=== PATIENT | female | born 1995 | race American Indian/Alaskan Native ===

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

== ENCOUNTER 2018-05-12 12:13 | Emergency (ER) | payer MEDICAID, OTHER ==
[2018-05-12 12:28] VITALS: BP 122/62
[2018-05-12] MEDS ORDERED: diphenhydrAMINE 50 MG Cap PO ONE (12:30)
--- NOTE | 2018-05-12 12:39 | EDM.PDOC ---
Scribed by Eliana Mendiola 05/12/18 1238 for Cesar Buck PA ED HPI GENERAL MEDICAL PROBLEM - General Chief Complaint: Skin Complaint Stated Complaint: HIVES Time Seen by Provider: 05/12/18 12:25 Source of Information: Reports: Patient, RN, RN Notes Reviewed History Limitations: Reports: No Limitations - History of Present Illness INITIAL COMMENTS - FREE TEXT/NARRATIVE: Patient is a 22-year-old female with diffuse rash with itching. This started today. She has had new laundry soap with scent. Onset: Today Duration: Getting Worse Location: Reports: Generalized Quality: Reports: Other (itching) Severity: Moderate Improves with: Reports: None Worsens with: Reports: None Associated Symptoms: Reports: No Other Symptoms - Related Data Allergies Allergy/AdvReac Type Severity Reaction Status Date / Time No Known Allergies Allergy Verified 05/12/18 12:24 Home Meds: Home Meds . 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: Musculoskeletal History: Reports: None Neurological History: Reports: None Psychiatric History: Reports: None Endocrine/Metabolic History: Reports: None Hematologic History: Reports: Anemia Immunologic History: Reports: None Oncologic (Cancer) History: Reports: None Dermatologic History: Reports: None - Infectious Disease History Infectious Disease History: Reports: None - Past Surgical History Head Surgeries/Procedures: Reports: None Musculoskeletal Surgical History: Reports: None Social & Family History - Family History Family Medical History: Noncontributory - Caffeine Use Caffeine Use: Reports: Coffee, Soda ED ROS GENERAL - Review of Systems Review Of Systems: ROS reveals no pertinent complaints other than HPI. ED EXAM, SKIN/RASH Exam: See Below Exam Limited By: No Limitations General Appearance: Alert, WD/WN, No Apparent Distress Eye Exam: Bilateral Eye: EOMI, Normal Inspection, PERRL Ears: Normal External Exam, Normal Canal, Hearing Grossly Normal, Normal TMs Nose: Normal Inspection, Normal Mucosa, No Blood Throat/Mouth: Normal Inspection, Normal Lips, Normal Teeth, Normal Gums, Normal Oropharynx, Normal Voice, No Airway Compromise Head: Atraumatic, Normocephalic Neck: Normal Inspection, Supple, Non-Tender, Full Range of Motion Respiratory/Chest: No Respiratory Distress, Lungs Clear, Normal Breath Sounds, No Accessory Muscle Use, Chest Non-Tender Cardiovascular: Normal Peripheral Pulses, Regular Rate, Rhythm, No Edema, No Gallop, No JVD, No Murmur, No Rub GI/Abdominal: Normal Bowel Sounds, Soft, Non-Tender, No Organomegaly, No Distention, No Abnormal Bruit, No Mass (Female) Exam: Deferred Rectal (Female) Exam: Deferred Back Exam: Normal Inspection Extremities: Normal Inspection, Normal Range of Motion, Non-Tender, No Pedal Edema, Normal Capillary Refill Neurological: Alert, Oriented, CN II-XII Intact, Normal Cognition, Normal Gait, Normal Reflexes, No Motor/Sensory Deficits Psychiatric: Normal Affect, Normal Mood Skin: Other (hives. Patient is itching) Lymphatic: No Adenopathy Course - Vital Signs Last Recorded V/S: Last Vital Signs Temp 36.7 C 05/12/18 12:16 Pulse 84 05/12/18 12:16 Resp 16 05/12/18 12:16 BP 122/62 05/12/18 12:16 Pulse Ox 100 05/12/18 12:16 - Orders/Labs/Meds Meds: Medications Discontinued Medications Generic Name Dose Route Start Last Admin Trade Name Daleq PRN Reason Stop Dose Admin Diphenhydramine HCl 50 mg 05/12/18 12:30 05/12/18 12:34 Benadryl PO 05/12/18 12:31 50 mg ONETIME ONE Administration Departure - Departure Time of Disposition: 13:35 Disposition: Home, Self-Care 01 Condition: Fair Clinical Impression: Hives - Discharge Information *PRESCRIPTION DRUG MONITORING PROGRAM REVIEWED*: Not Applicable *COPY OF PRESCRIPTION DRUG MONITORING REPORT IN PATIENT JANNA: Not Applicable Instructions: Hives Forms: ED Department Discharge Care Plan Goals: The patient was advised of the examination results during the visit. The patient was given an oral dose of Benadryl while in the ED. The patient was encouraged to continue to take Benadryl (25 mg) every 6 hours. If the patient has any additional symptoms or concerns, the patient should either visit her primary care facility or return to the emergency department. I have read and agree with the documentation that has been completed regarding this visit. By signing this record, I attest that the documentation was completed in my physical presence and is an accurate record of the encounter.
== END 2018-05-12 13:59 | disposition home or self-care (01) ==
LOC: DL.ED 12:13
DX: L50.9 Urticaria, unspecified (principal)
CPT/HCPCS: 99283; Q0163

== ENCOUNTER 2018-06-14 17:29 | Emergency (ER) | payer OTHER ==
[2018-06-14 17:50] VITALS: BP 123/68
[2018-06-14] MEDS ORDERED: Clindamycin HCl 150 MG Cap PO ONE (19:19)
[2018-06-14] MEDS ORDERED: Acetaminophen/HYDROcodone 325-10 MG Tab PO ONE (19:19)
--- NOTE | 2018-06-14 19:23 | EDM.PDOC ---
ED HPI GENERAL MEDICAL PROBLEM - General Chief Complaint: ENT Problem Stated Complaint: ? INFECTED TOOTH Time Seen by Provider: 06/14/18 19:20 Source of Information: Reports: Patient History Limitations: Reports: No Limitations - History of Present Illness INITIAL COMMENTS - FREE TEXT/NARRATIVE: c/o tooth flare up right face all swollen now. Treatments SLOT ATTENDANT: Reports: Other (see below) Other Treatments SLOT ATTENDANT: tylenol 650 mg this am - Related Data Allergies Allergy/AdvReac Type Severity Reaction Status Date / Time No Known Allergies Allergy Verified 05/12/18 12:24 Home Meds: Home Meds . 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: Musculoskeletal History: Reports: None Neurological History: Reports: None Psychiatric History: Reports: None Endocrine/Metabolic History: Reports: None Hematologic History: Reports: Anemia Immunologic History: Reports: None Oncologic (Cancer) History: Reports: None Dermatologic History: Reports: None - Infectious Disease History Infectious Disease History: Reports: None - Past Surgical History Head Surgeries/Procedures: Reports: None Musculoskeletal Surgical History: Reports: None Social & Family History - Family History Family Medical History: Noncontributory - Tobacco Use Smoking Status *Q: Unknown Ever Smoked - Caffeine Use Caffeine Use: Reports: Soda - Recreational Drug Use Recreational Drug Use: No ED ROS ENT - Review of Systems Review Of Systems: ROS reveals no pertinent complaints other than HPI. ED EXAM, ENT - Physical Exam Exam: See Below Exam Limited By: No Limitations General Appearance: Alert, WD/WN, Mild Distress, Moderate Distress, Other ( crying) Ears: Hearing Grossly Normal Mouth/Throat: Dental Abcess, Dental Pain, Dental Tenderness Head: Atraumatic, Other (right facila swelling, no s/s cellulitis) Neck: Non-Tender, Full Range of Motion Respiratory/Chest: No Respiratory Distress Cardiovascular: Regular Rate, Rhythm GI/Abdominal: Soft, Non-Tender Neurological: Alert, Oriented, Normal Cognition, Normal Gait, No Motor/Sensory Deficits Psychiatric: Tearful Skin: Warm, Dry, Normal Color Lymphatic: No Adenopathy Course - Vital Signs Last Recorded V/S: Last Vital Signs Temp 36.9 C 06/14/18 17:35 Pulse 71 06/14/18 17:35 Resp 16 06/14/18 17:35 BP 123/68 06/14/18 17:35 Pulse Ox 100 06/14/18 17:35 - Orders/Labs/Meds Meds: Medications Discontinued Medications Generic Name Dose Route Start Last Admin Trade Name Freq PRN Reason Stop Dose Admin Hydrocodone Bitart/Acetaminophen 1 tab 06/14/18 19:19 [place] 325-10 Mg PO 06/14/18 19:20 ONETIME ONE Clindamycin HCl 150 mg 06/14/18 19:19 Cleocin PO 06/14/18 19:20 ONETIME ONE Departure - Departure Time of Disposition: 19:22 Disposition: Home, Self-Care 01 Condition: Good Clinical Impression: Dental abscess, Dental caries - Discharge Information Instructions: Dental Abscess, [id number] Additional Instructions: 1) avoid solid foods 2) have liquids and soft foods 3) see DENTIST rx given; clindamycin 300mg qid x 40 vicodin 5/325mg tid prn x 12
== END 2018-06-14 19:30 | disposition home or self-care (01) ==
LOC: DL.ED 17:29
DX: K04.7 Periapical abscess without sinus (principal)
CPT/HCPCS: 99282

== ENCOUNTER 2019-06-22 20:41 | Emergency (ER) | payer MEDICAID ==
[2019-06-22 21:06] VITALS: BP 129/53; PULSE 73
[2019-06-22 21:48] LABS: ANION GAP 15.8 mEq/L (7-13); CHLORIDE,CL 102 mmol/L (98-107); SODIUM,NA 139 mmol/L (136-145)
--- NOTE | 2019-06-22 22:10 | EDM.PDOC ---
ED HPI GENERAL MEDICAL PROBLEM - General Chief Complaint: NETWORK TECHNICAL ANALYST Problem Stated Complaint: SPOTTING/11 WEEKS ALONG/HIGHRISK Time Seen by Provider: 06/22/19 22:05 Source of Information: Reports: Patient History Limitations: Reports: No Limitations - History of Present Illness INITIAL COMMENTS - FREE TEXT/NARRATIVE: states [id number], told has high risk preg. had intercourse this AM and later spotted x 1 and no further episode, was told to come in by PMD if has spotting. right now feels fine. Left Abdominal Pain Score (Numeric/FACES): 2 - Related Data Allergies Allergy/AdvReac Type Severity Reaction Status Date / Time No Known Allergies Allergy Verified 06/22/19 21:13 Home Meds: Home Meds Vit/FA/Fe Fumarate/Se [ MTR] 1 tab PO DAILY 06/22/19 [History] Past Medical History - Past Health History Medical/Surgical History: Denies Medical/Surgical History HEENT History: Reports: None Cardiovascular History: Reports: None Respiratory History: Reports: Asthma Gastrointestinal History: Reports: None Genitourinary History: Reports: None NETWORK TECHNICAL ANALYST History: Reports: , Spontaneous , Other (See Below) Other NETWORK TECHNICAL ANALYST History: Musculoskeletal History: Reports: None Neurological History: Reports: None Psychiatric History: Reports: None Endocrine/Metabolic History: Reports: None Hematologic History: Reports: Anemia Immunologic History: Reports: None Oncologic (Cancer) History: Reports: None Dermatologic History: Reports: None - Infectious Disease History Infectious Disease History: Reports: None - Past Surgical History Head Surgeries/Procedures: Reports: None Musculoskeletal Surgical History: Reports: None Social & Family History - Family History Family Medical History: Noncontributory - Tobacco Use Smoking Status *Q: Never Smoker Second Hand Smoke Exposure: No - Caffeine Use Caffeine Use: Reports: Coffee, Soda - Recreational Drug Use Recreational Drug Use: No ED ROS GENERAL - Review of Systems Review Of Systems: Comprehensive ROS is negative, except as noted in HPI. ED EXAM - Physical Exam Exam: See Below Exam Limited By: No Limitations General Appearance: Alert, WD/WN, No Apparent Distress. No: Active Emesis Ears: Hearing Grossly Normal Throat/Mouth: Normal Voice, No Airway Compromise Head: Atraumatic Neck: Non-Tender, Full Range of Motion Respiratory/Chest: No Respiratory Distress Cardiovascular: Regular Rate, Rhythm GI/Abdominal Exam: Soft, Other (minor suprapub discomfort) Neurological: Alert, Oriented, Normal Cognition, Normal Gait, No Motor/Sensory Deficits Psychiatric: Normal Affect, Normal Mood Skin Exam: Warm, Dry, Normal Color Lymphatic: No Adenopathy Course - Vital Signs Last Recorded V/S: Last Vital Signs Temp 36.8 C 06/22/19 21:05 Pulse 73 06/22/19 21:05 Resp 16 06/22/19 21:05 BP 129/53 L 06/22/19 21:05 Pulse Ox 94 L 06/22/19 21:05 - Orders/Labs/Meds Orders: Active Orders 24 hr Category Date Time Status OB Ltd 1 or More Fetus [US] Urgent Exams 06/22/19 22:30 Ordered Labs: Laboratory Tests 06/22/19 06/22/19 06/22/19 Range/Units 21:21 21:21 21:21 WBC 9.2 (5.0-10.0) 10^3/uL RBC 4.41 (4.2-5.4) 10^6/uL Hgb 12.9 D (12.0-16.0) g/dL Hct 37.7 (37.0-47.0) % MCV 85.5 D (80-100) fL MCH 29.3 (27.0-34.0) pg MCHC 34.2 (33.0-35.0) g/dL Plt Count 274 (150-450) 10^3/uL Sodium 139 (136-145) mmol/L Potassium 3.8 (3.5-5.1) mmol/L Chloride 102 (98-107) mmol/L Carbon Dioxide 25 (21-32) mmol/L Anion Gap 15.8 H (7-13) mEq/L BUN 10 (7-18) mg/dL Creatinine 0.53 L (0.55-1.02) mg/dL Est Cr Clr Drug Dosing 126.70 mL/min Estimated GFR (MDRD) > 60 BUN/Creatinine Ratio 18.9 (No establ ref range) Glucose 92 (74-99) mg/dL Calcium 8.8 (8.5-10.1) mg/dL Total Bilirubin 0.1 L (0.2-1.0) mg/dL AST 12 L (15-37) U/L ALT 26 (14-59) U/L Alkaline Phosphatase 85 (46-116) U/L Total Protein 7.5 (6.4-8.2) g/dL Albumin 4.0 (3.4-5.0) g/dL Globulin 3.5 Albumin/Globulin Ratio 1.1 HCG, Quant 4559 H (0-6) mIU/mL - Re-Assessments/Exams Free Text/Narrative Re-Assessment/Exam: 06/22/19 23:52 results discussed with pt & boyfriend. Departure - Departure Time of Disposition: 23:52 Disposition: Home, Self-Care 01 Condition: Good Clinical Impression: Spontaneous - Discharge Information Instructions: Coping With Loss Forms: ED Department Discharge Additional Instructions: 1) rest and avoid vigorous activity next 48 hours 2) follow up with Dr Wills 3) recheck if there is any change or concern 4) take tylenol for discomfort Sepsis Event Note - Evaluation Sepsis Screening Result: No Definite Risk - Focused Exam Vital Signs: Vital Signs Temp Pulse Resp BP Pulse Ox 06/22/19 21:05 36.8 C 73 16 129/53 L 94 L Date Exam was Performed: 06/22/19 Time Exam was Performed: 23:52 - My Orders Last 24 Hours: My Active Orders 06/22/19 22:30 OB Ltd 1 or More Fetus [US] Urgent - Assessment/Plan Last 24 Hours: My Active Orders 06/22/19 22:30 OB Ltd 1 or More Fetus [US] Urgent
[2019-06-22] MEDS ORDERED: Acetaminophen/HYDROcodone 325-10 MG Tab PO ONE (23:52)
== END 2019-06-23 | disposition home or self-care (01) ==
LOC: DL.ED 20:41
DX: O03.9 Complete or unspecified spontaneous abortion without complication (principal)
CPT/HCPCS: 36415; 76815; 80053; 84702; 85027; 99284; A9270

== ENCOUNTER 2020-05-04 20:46 | Emergency (ER) | payer MEDICAID, OTHER ==
[2020-05-04 21:04] VITALS: BP 118/54; PULSE 79
--- NOTE | 2020-05-04 21:25 | EDM.PDOC ---
ED HPI GENERAL MEDICAL PROBLEM <Liat Hale - Last Filed: 05/04/20 23:03> - General Source of Information: Reports: Patient, RN, RN Notes Reviewed History Limitations: Reports: No Limitations <Ivette Ridley - Last Filed: 05/05/20 11:14> - General Chief Complaint: AERIAL APPLICATOR PILOT Problem Stated Complaint: 12 WEEKS , CRAMPING Time Seen by Provider: 05/04/20 21:05 - History of Present Illness INITIAL COMMENTS - FREE TEXT/NARRATIVE: Patient presents to the ED via personal vehicle with complaints of bilateral lower abdominal cramping. The patient reports she is 12 weeks with a due date of November 06, 2020; LMP was end of January, she was unsure of exact date. The patient is G5, P2 with two spontaneous abortions. She states the cramps began about 30 minutes ago and radiate into her bilateral back; she notes they have maintained in severity. She denies vaginal discharge or vaginal bleeding. She denies recent illness, fever, shaking chills, vomiting, loose stools, or recent intercourse. She does attest to nausea and constipation; last bowel movement with three days ago. The patient states she has not been eating and drinking well due to her nausea. She has been taking Unisom and B6 for this problem with [id number] alleviation of her nausea. She has already established with her family practice doctor and is scheduled for a second appointment in seven days. She denies tobacco, alcohol, or recreational drug use. (Ivette Ridley) - Related Data Allergies Allergy/AdvReac Type Severity Reaction Status Date / Time No Known Allergies Allergy Verified 05/04/20 20:55 Home Meds: Home Meds Vit/FA/Fe Fumarate/Se [ MTR] 1 tab PO DAILY 06/22/19 [History] Past Medical History - Past Health History Medical/Surgical History: Denies Medical/Surgical History HEENT History: Reports: None Cardiovascular History: Reports: None Respiratory History: Reports: Asthma Gastrointestinal History: Reports: None Genitourinary History: Reports: UTI, Recurrent AERIAL APPLICATOR PILOT History: Reports: , Spontaneous Other AERIAL APPLICATOR PILOT History: Musculoskeletal History: Reports: None Neurological History: Reports: None Psychiatric History: Reports: None Endocrine/Metabolic History: Reports: None Hematologic History: Reports: Anemia Immunologic History: Reports: None Oncologic (Cancer) History: Reports: None Dermatologic History: Reports: None - Infectious Disease History Infectious Disease History: Reports: None - Past Surgical History Head Surgeries/Procedures: Reports: None Female Surgical History: Reports: Section Musculoskeletal Surgical History: Reports: None <Ivette Ridley - Last Filed: 05/05/20 11:14> Social & Family History - Family History Family Medical History: No Pertinent Family History - Tobacco Use Tobacco Use Status *Q: Current Status Unknown Second Hand Smoke Exposure: No - Caffeine Use Caffeine Use: Reports: Soda - Recreational Drug Use Recreational Drug Use: No <Ivette Ridley - Last Filed: 05/05/20 11:14> ED ROS GENERAL - Review of Systems Review Of Systems: Comprehensive ROS is negative, except as noted in HPI. <Ivette Ridley - Last Filed: 05/05/20 11:14> ED EXAM - Physical Exam Exam: See Below Exam Limited By: No Limitations General Appearance: Alert, No Apparent Distress Respiratory/Chest: No Respiratory Distress, Lungs Clear, Normal Breath Sounds, No Accessory Muscle Use, Chest Non-Tender Cardiovascular: Normal Peripheral Pulses, Regular Rate, Rhythm, No Edema, No Gallop, No JVD, No Murmur, No Rub GI/Abdominal Exam: Soft, No Distention, Pelvis Stable, Tender (To palpation of bilateral lower quadrants), Abnormal Bowel Sounds (Hyperactive bowel sounds) Rectal Exam: Deferred Back Exam: Normal Inspection, Full Range of Motion. No: CVA Tenderness (L), CVA Tenderness (R) Extremities: Normal Inspection, Normal Range of Motion, Non-Tender, Normal Capillary Refill, No Pedal Edema Neurological: Alert, Oriented, CN II-XII Intact, Normal Cognition, Normal Gait, No Motor/Sensory Deficits Psychiatric: Normal Affect, Anxious Skin Exam: Warm, Dry, Intact, Normal Color, No Rash. No: Ecchymosis, Erythema, Jaundice, Mottled, Pallor, Petechiae <Ivette Ridley - Last Filed: 05/05/20 11:14> Course <Ivette Ridley - Last Filed: 05/05/20 11:14> - Vital Signs Last Recorded V/S: Last Vital Signs Temp 98.5 F 05/04/20 21:03 Pulse 79 05/04/20 21:03 Resp 16 05/04/20 21:03 BP 118/54 L 05/04/20 21:03 Pulse Ox 98 05/04/20 21:03 - Orders/Labs/Meds Labs: Laboratory Tests 05/04/20 05/04/20 05/04/20 Range/Units 20:55 21:11 21:11 WBC 9.9 (5.0-10.0) 10^3/uL RBC 4.08 L (4.2-5.4) 10^6/uL Hgb 11.4 L D (12.0-16.0) g/dL Hct 33.5 L (37.0-47.0) % MCV 82.1 D (80-100) fL MCH 27.9 (27.0-34.0) pg MCHC 34.0 (33.0-35.0) g/dL Plt Count 230 (150-450) 10^3/uL Neut % (Auto) 71.8 (42.2-75.2) % Lymph % (Auto) 20.4 L (20.5-50.1) % [place] % (Auto) 6.6 (2-8) % Eos % (Auto) 1.2 (1.0-3.0) % Baso % (Auto) 0.0 (0.0-1.0) % Sodium 137 (136-145) mmol/L Potassium 4.0 (3.5-5.1) mmol/L Chloride 102 (98-107) mmol/L Carbon Dioxide 25 (21-32) mmol/L Anion Gap 14.0 H (7-13) mEq/L BUN 10 (7-18) mg/dL Creatinine 0.49 L (0.55-1.02) mg/dL Est Cr Clr Drug Dosing 129.35 mL/min Estimated GFR (MDRD) > 60 BUN/Creatinine Ratio 20.4 (No establ ref range) Glucose 87 (74-99) mg/dL Calcium 9.3 (8.5-10.1) mg/dL Total Bilirubin 0.3 (0.2-1.0) mg/dL AST 9 L (15-37) U/L ALT 17 (14-59) U/L Alkaline Phosphatase 56 (46-116) U/L Total Protein 7.2 (6.4-8.2) g/dL Albumin 3.5 (3.4-5.0) g/dL Globulin 3.7 Albumin/Globulin Ratio 0.9 HCG, Quant (0-6) mIU/mL Urine Color Light yellow (YELLOW) Urine Appearance Clear (CLEAR) Urine pH 6.5 (5.0-9.0) Ur Specific [place] 1.015 (1.005-1.030) Urine Protein Negative (NEGATIVE) Urine Glucose (UA) Negative (NEGATIVE) Urine Ketones Negative (NEGATIVE) Urine Occult Blood Negative (NEGATIVE) Urine Nitrite Negative (NEGATIVE) Urine Bilirubin Negative (NEGATIVE) Urine Urobilinogen 0.2 (0.2-1.0) mg/dL Ur Leukocyte Esterase Negative (NEGATIVE) 05/04/20 Range/Units 21:11 WBC (5.0-10.0) 10^3/uL RBC (4.2-5.4) 10^6/uL Hgb (12.0-16.0) g/dL Hct (37.0-47.0) % MCV (80-100) fL MCH (27.0-34.0) pg MCHC (33.0-35.0) g/dL Plt Count (150-450) 10^3/uL Neut % (Auto) (42.2-75.2) % Lymph % (Auto) (20.5-50.1) % Aiken % (Auto) (2-8) % Eos % (Auto) (1.0-3.0) % Baso % (Auto) (0.0-1.0) % Sodium (136-145) mmol/L Potassium (3.5-5.1) mmol/L Chloride (98-107) mmol/L Carbon Dioxide (21-32) mmol/L Anion Gap (7-13) mEq/L BUN (7-18) mg/dL Creatinine (0.55-1.02) mg/dL Est Cr Clr Drug Dosing mL/min Estimated GFR (MDRD) BUN/Creatinine Ratio (No establ ref range) Glucose (74-99) mg/dL Calcium (8.5-10.1) mg/dL Total Bilirubin (0.2-1.0) mg/dL AST (15-37) U/L ALT (14-59) U/L Alkaline Phosphatase (46-116) U/L Total Protein (6.4-8.2) g/dL Albumin (3.4-5.0) g/dL Globulin Albumin/Globulin Ratio HCG, Quant 38714 H (0-6) mIU/mL Urine Color (YELLOW) Urine Appearance (CLEAR) Urine pH (5.0-9.0) Ur Specific [place] (1.005-1.030) Urine Protein (NEGATIVE) Urine Glucose (UA) (NEGATIVE) Urine Ketones (NEGATIVE) Urine Occult Blood (NEGATIVE) Urine Nitrite (NEGATIVE) Urine Bilirubin (NEGATIVE) Urine Urobilinogen (0.2-1.0) mg/dL Ur Leukocyte Esterase (NEGATIVE) Meds: Medications Discontinued Medications Generic Name Dose Route Start Last Admin Trade Name Daleq PRN Reason Stop Dose Admin Sodium Chloride 1,000 mls @ 999 mls/hr 05/04/20 21:28 05/04/20 21:36 Normal Saline IV 05/04/20 22:28 999 mls/hr .BOLUS ONE Administration Ondansetron HCl 4 mg 05/04/20 21:28 05/04/20 21:36 Zofran IVPUSH 05/04/20 21:29 4 mg ONETIME ONE Administration - Re-Assessments/Exams Free Text/Narrative Re-Assessment/Exam: 05/05/20 Patient reports improvement in cramping following NS 1L bolus and Zofran 4mg IVP. US revealed single intrauterine gestation. Approximate age of gestation is 13 +1 based on size; approximated due date is November 08. HR noted at 150. Placenta appears to be forming in the posterior uterus. No adnexal mass appreciated, bilaterally. No free fluid in the peritoneum. Patient instructed to keep appointment with her Family Practice provider, as previously scheduled. Red flag signs and symptoms which would warrant evaluation discussed. Patient verbalized understanding and agreement with the plan of care. (Ivette Ridley) Departure - Departure Time of Disposition: 23:03 <Liat Hale - Last Filed: 05/04/20 23:03> - Departure Condition: Good - Discharge Information *PRESCRIPTION DRUG MONITORING PROGRAM REVIEWED*: Not Applicable *COPY OF PRESCRIPTION DRUG MONITORING REPORT IN PATIENT JANNA: Not Applicable <Ivette Ridley - Last Filed: 05/05/20 11:14> - Departure Disposition: Home, Self-Care 01 Clinical Impression: Abdominal cramping affecting , Anemia affecting fifth , Nausea/vomiting in , Constipation during in first trimester, [place]agne gestation with fifth , Intrauterine - Discharge Information Instructions: and Anemia, First Trimester of , [id number], Constipation, Adult, [id number] Referrals: PCP,None [Primary Care Provider] - Forms: ED Department Discharge Additional Instructions: Rx: Latoya CHATTERJEE 1.) Continue to follow with your Family Practice doctor, as previously scheduled. 2.) Continue on vitamins with DHA and Folic Acid; May consider a with Iron. 3.) You may take [id number] MiraLax for constipation. 4.) Drink plenty of water to stay hydrated, frequent small sips help with nausea. 5.) Eat small, frequent meals to help with nausea. Sepsis Event Note (ED) - Evaluation Sepsis Screening Result: No Definite Risk <Ivette Ridley - Last Filed: 05/05/20 11:14>
[2020-05-04] MEDS ORDERED: Ondansetron 4 MG/2 ML SDV IVPUSH ONE (21:28)
[2020-05-04] MEDS ORDERED: Sodium Chloride 0.9% 1,000 ML IV ONE (21:28)
[2020-05-04 21:37] LABS: CHLORIDE,CL 102 mmol/L (98-107); SODIUM,NA 137 mmol/L (136-145)
--- NOTE | 2020-05-04 23:00 | US ---
PROCEDURE INFORMATION: Exam: US First Trimester, Transabdominal Exam date and time: 05/04/2020 10:10 PM Age: 24 years old Clinical indication: complicated by abdominal or pelvic pain; Other: Bilateral cramping; Gestational age or lmp: 13+1; ; Patient HX: Cramping in TECHNIQUE: Imaging protocol: Real-time transabdominal obstetrical ultrasound of the maternal pelvis and a first trimester , less than 14 weeks 0 days, with image documentation. COMPARISON: None. FINDINGS: Gestation: There is a single live intrauterine gestation. Gestational sac within the uterus contains a pole. Embryonic/ heart rate: heart rate is present measuring 150 bpm. Placenta: Unremarkable. No subchorionic bleed. Amniotic fluid: Amniotic fluid is normal for gestational age. BIOMETRY: Gestational age (AUA): Estimated gestational age based on today's ultrasound is thirteen weeks 1 day. Estimated due date (AUA): The estimated date of delivery based on today's ultrasound is November 08, 2020. [place]-Rump length: crown-rump length measures 6.8 cm. MATERNAL: Uterus: Unremarkable. Cervix: Unremarkable. Right adnexa: Right ovary not visualized. No right adnexal mass. Left adnexa: Left ovary is seen. Blood flow is not confirmed. No suspicious mass. Left ovary measures 2.4 x 1.5 x 2 cm. Intraperitoneal space: No free fluid. IMPRESSION: 1. There is a single live intrauterine gestation. 2. Estimated gestational age based on today's ultrasound is thirteen weeks 1 day. 3. The estimated date of delivery based on today's ultrasound is November 08, 2020.
== END 2020-05-04 23:12 | disposition home or self-care (01) ==
LOC: DL.ED 20:46
DX: O21.9 Vomiting of pregnancy, unspecified (principal); O99.611 Diseases of the digestive system complicating pregnancy, first trimester; K59.00 Constipation, unspecified; O99.011 Anemia complicating pregnancy, first trimester; O99.511 Diseases of the respiratory system complicating pregnancy, first trimester; J45.909 Unspecified asthma, uncomplicated; Z3A.13 13 weeks gestation of pregnancy
CPT/HCPCS: 36415; 76801; 80053; 81003; 84702; 85025; 96374; 99284; J2405; J7030

== ENCOUNTER 2020-10-21 20:29 | Inpatient (IN) | payer MEDICAID ==
[~2020-10-21 20:29] MED LIST: Oxytocin/Normal Saline 30 UNIT/500 ML BAG IV ONE
[2020-10-21] MEDS ORDERED: ceFAZolin 2 GM in Sodium Chloride 0.9% 50 ML IV ONE (20:40)
[2020-10-21] MEDS ORDERED: Naloxone 2 MG/2 ML Syringe IVPUSH PRN (20:42)
[2020-10-21] MEDS ORDERED: ePHEDrine 50 MG/ML SDV IVPUSH PRN (20:42)
[2020-10-21] MEDS ORDERED: Misoprostol 400 MCG (4 X 100 MCG TAB) RECTAL PRN (20:42)
[2020-10-21] MEDS ORDERED: Acetaminophen 325 MG Tab PO PRN (20:42)
[2020-10-21] MEDS ORDERED: Ondansetron 4 MG/2 ML SDV IVPUSH PRN (20:42)
[2020-10-21] MEDS ORDERED: Tranexamic Acid 1,000 MG in Sodium Chloride 0.9% 100 ML IV PRN (20:42)
[2020-10-21] MEDS ORDERED: Acetaminophen/oxyCODONE 325-5 MG Tab PO PRN (20:42)
[2020-10-21] MEDS ORDERED: Carboprost Tromethamine 250 MCG/1 ML Amp IM PRN (20:42)
[2020-10-21] MEDS ORDERED: Methylergonovine 0.2 MG/1 ML Amp IM PRN (20:42)
[2020-10-21] MEDS ORDERED: diphenhydrAMINE 50 MG/ML SDV IVPUSH PRN (20:42)
[2020-10-21] MEDS ORDERED: Citric Acid/Sodium Citrate Solution 30 ML Cup PO ONE ×2 (20:49→21:00)
[2020-10-21] MEDS ORDERED: Oxytocin/Normal Saline 60 UNIT/1,000 ML BAG ONE (20:51)
[2020-10-21] MEDS ORDERED: Famotidine 20 MG/2 ML SDV IV ONE (21:00)
[2020-10-21] MEDS ORDERED: ePHEDrine 50 MG/ML SDV IV ONE (21:00)
[2020-10-21] MEDS ORDERED: Lactated Ringers 1,000 ML IV SCH (21:00)
[2020-10-21] MEDS ORDERED: Morphine PF 10 MG/10 ML SDV ONE (21:00)
[2020-10-21] MEDS ORDERED: Ketorolac 30 MG/ML SDV IVPUSH ONE (21:00)
[2020-10-21] MEDS ORDERED: Propofol 200 MG/20 ML SDV IV ONE (21:00)
[2020-10-21] MEDS: Lactated Ringers 1,000 ML IV SCH (21:20)
[2020-10-21] MEDS ORDERED: Oxytocin/Normal Saline 30 UNIT/500 ML BAG IV SCH (22:05)
[2020-10-21 22:28] LABS: AMPHETAMINES,URINE NEGATIVE (NEGATIVE); BARBITURATES,URINE NEGATIVE (NEGATIVE); BENZODIAZEPINE,URINE NEGATIVE (NEGATIVE); MDMA (ECSTASY), URINE NEGATIVE (NEGATIVE); METHADONE,URINE NEGATIVE (NEGATIVE); METHAMPHETAMINES,URINE NEGATIVE (NEGATIVE); OPIATES,URINE NEGATIVE (NEGATIVE); OXYCODONE,URINE NEGATIVE (NEGATIVE); PHENCYCLIDINE,URINE NEGATIVE (NEGATIVE); TCA,URINE NEGATIVE (NEGATIVE)
[2020-10-21] MEDS ORDERED: diphenhydrAMINE 25 MG Tab PO PRN (22:49)
[2020-10-21] MEDS: Simethicone 80 MG Tab.Chew PO SCH (23:28)
[2020-10-22] MEDS: Acetaminophen/oxyCODONE 325-5 MG Tab PO PRN ×5 (01:19→21:02)
[2020-10-22] MEDS: Lactated Ringers 1,000 ML IV SCH (01:25)
[2020-10-22] MEDS: Ketorolac 30 MG/ML SDV IVPUSH SCH ×3 (03:41→16:03)
[2020-10-22] MEDS: Simethicone 80 MG Tab.Chew PO SCH ×4 (08:19→21:03)
[2020-10-22] MEDS: Docusate Sodium 100 MG Cap PO PRN ×2 (08:19→21:02)
[2020-10-22] MEDS: Prenatal Multivitamin with Calcium/Folic Acid/Iron Tab PO SCH (08:19)
--- NOTE | 2020-10-22 10:17 | PN ---
DATE: 10/22/2020 SUBJECTIVE: The patient is a 25-year-old, G5, now P3 female, who is day 1, repeat low-transverse section after history of classical section, who is O positive, rubella immune. The patient is tolerating p.o. intake of clear liquids and full liquids. The patient will try eating solid foods and breakfast this morning. The patient has not yet ambulated. Villa catheter is in place. The patient does report passing flatus. The patient does endorse moderate sharp pain at her incision site. This is resolved with Toradol. The patient did get Percocet x1 overnight for severe pain, which resolved and allowed the patient to rest overnight. The patient denies headaches, change in vision, nausea, vomiting, abdominal pain, upper abdominal pain, difficulty breathing, or pain in her chest. The patient denies pain to her lower extremities. OBJECTIVE: Vital Signs: Temperature 98.6, HR 68 bpm, BP 104/42, respiration rate 18 breaths per minute, oxygen saturation 100% on room air. HEENT: Within normal limits. Pulmonary: Lungs clear to auscultation bilaterally. Cardiovascular: Regular rate and rhythm. Abdomen: Firm uterus 2 cm below umbilicus. Incision clean, dry, and intact with gauze and Steri-Strips in place. No erythema or edema. Extremities: No calf pain or tenderness. Trace bilateral pedal edema. SCDs and compression stockings in place. LABORATORY DATA: CBC: WBC: 13.1, up from 11.3 on 10/21. RBC: 3.77, down from 4.28 on admission. Hemoglobin: 10.4, down from 11.9 on admission. UDS negative. COVID negative. ASSESSMENT: The patient is postop day 1, status post repeat low-transverse section. We will continue with routine post- cares. We will continue to follow closely clinically. PLAN: We will continue with routine postoperative cares. Possible discharge on postop day 3. The patient was seen and evaluated by myself along with Dr. Rene Wills. Assessment and plan is under advisement of Dr. Wills. [facility] /[id number]
--- NOTE | 2020-10-22 12:15 | OR ---
DATE: 10/21/2020 PREOPERATIVE DIAGNOSES: 1. Intrauterine at 37 weeks by 9-/7-week ultrasound. 2. Contractions with cervical change upon admission. 3. History of classical section. 4. History of 2 previous sections, requests repeat low transverse section. 5. Group B Streptococcus negative. 6. Impaired glucose tolerance. 7. Anemia of . Hemoglobin on 09/29/2020 was 10.3, and in the 11.9 upon admission. 8. G5, P2-1-1-3. POSTOPERATIVE DIAGNOSES: 1. Intrauterine at 37 weeks by 9-/7-week ultrasound, delivered. 2. Contractions with cervical change upon admission. 3. History of classical section. 4. History of 2 previous sections, request repeat low transverse section. 5. Group B Streptococcus negative. 6. Impaired glucose tolerance. 7. Anemia of . Hemoglobin on 09/29/2020 was 10.3, and in the 11.9 upon admission. 8. G5, P2-1-1-3. 9. Nuchal cord x1, reduced bluntly at delivery. 10.Difficulty delivering vertex, requiring Kiwi vacuum assistance. 11.Minimal rectus muscle layer with difficulty delineating planes subfascially. PROCEDURE PERFORMED: Nonstress test followed by repeat low transverse section. ASSISTANTS: Kati Barbosa, PGY-III and Karla Lentz MS-IV, PGY 2. ANESTHESIA: Spinal. ESTIMATED BLOOD LOSS: 500 mL. IV FLUIDS: 1700 mL. URINE OUTPUT: 1050 mL and clear. START: 2126. UTERINE INCISION: 2128. DELIVERY: 2129. STOP: 2155. FINDINGS: Male. score of 9 and 9. Weight pending with minimal rectus muscle layer subfascially with difficulty delineating tissue planes subfascially. Please see below. DESCRIPTION OF PROCEDURE IN DETAIL: After appropriate consent was obtained, the patient was brought to the operating room where spinal anesthetic was administered. A Villa was placed under preop under sterile conditions. The abdomen was prepped and draped in the normal sterile fashion. The patient was placed in supine position with left lateral tilt. A skin incision was then made over lower abdomen in transverse Pfannenstiel-type fashion over a previous scar and this was carried down to the fascia and scored in the midline. When entering through the fascia, there was minimal rectus muscle layer. Care was taken over this area and subfascially. Due to this, fascial incision was then extended in transverse fashion using curved Haley's. Rectus fascia was then attempted to be from rectus muscles which were essentially non-existent and this was done in a blunt technique. Abdominal cavity was entered bluntly with doing this. Uriel O large retractor was then introduced and used. Vesicouterine peritoneum was then identified and incised in transverse fashion with Metzenbaum scissors and bladder flap was made digitally. Thin lower uterine segment was noted. Curvilinear incision was made on lower uterine segment at 2129 hours. Uterus was entered sharply. Clear fluid returned. Uterine incision was then extended in a transverse fashion using blunt technique. vertex was attempted to be delivered through the incision with difficulty. Kiwi vacuum was called for, applied to the vertex, pumped up to the green with gentle pulling with fundal pressure, vertex was delivered. Vacuum was disengaged. Nuchal cord x1 was reduced bluntly and rest of the infant was delivered without difficulty. Mouth and nares were suctioned. Cord was doubly clamped and cut, and was brought to team. Then, approximately 10 mL cord blood was obtained for labs. Placenta was then delivered with gentle cord traction and fundal massage. Uterine cavity was then cleared of all blood clots and debris with lap sponge. Dempsey clamps were used to grasp the uterine incision. This was closed in a running locked fashion and tied at lateral margins with 1-0 Vicryl. Left lateral portion of the incision required 2 cbyqmo-rn-yvajp stitches and hemostasis reassured. First inspection of the uterine incision revealed hemostasis. Uriel O retractor was then removed and paracolic gutters were then cleared of all blood clots and debris with lap sponge. Anterior cul-de-sac was irrigated copiously and all blood clots were removed. Second and final inspection of uterine incision and anterior cul-de-sac revealed hemostasis. There was inability to determine the rectus muscle layer sheath; therefore, subfascial tissues were found to be hemostatic and fascia was closed in a running fashion and tied at lateral margins with 0 looped PDS. Subcutaneous tissue was irrigated copiously. Hemostasis was reassured. Skin was reapproximated with a subcuticular stitch using 3-0 Monocryl on a Oz needle tied at lateral margins. Steri-Strips and dressing applied thereafter. Uterine fundus was firm and massaged at the conclusion of the case, -2 below umbilicus. No immediate complications were noted. Sponge, lap, and needle counts were correct. The patient received 2 g of Ancef preoperatively, Pitocin per protocol, and received Toradol at the conclusion of the case for pain control. Mother and are currently stable at the time of dictation. [facility] /[id number] [facility]ITALNessa
--- NOTE | 2020-10-22 13:42 | OBOUT ---
DATE: 10/21/2020 TIME: 2019 to 2039 hours. REASON FOR NST: 1. Intrauterine at 37 weeks by 9-/7 weeks' ultrasound. 2. Contractions with no cervical change. 3. History of classical . 4. History of 2 previous C-sections, requests repeat low transverse . 5. GBS negative. 6. Impaired glucose tolerance. 7. Anemia of , last hemoglobin on 09/29/2020, 10.3, and currently on iron and vitamins. 8. -1-1-3. NST INTERPRETATION: 1. During this time period, heart tone baseline is approximately 130 and at least two 15 x 15 beats per minute acceleration making this strip reactive and reassuring. 2. Tocometer reveals potential 5 to 6 contractions felt by the patient. Blood pressure 133/78, heart rate 81. The patient feels afebrile. ASSESSMENT: 1. Nonstress test, reactive and reassuring. 2. Tocometer with contractions. PLAN: Due to the patient's history of classical and was to be scheduled tomorrow for repeat low transverse , now being admitted with contractions and noted to have cervical change with vaginal exam reveals her to be 2 to 3 cm, 60% effaced, -1 to -2 station. Discussed with the patient recommendations to proceed to repeat low transverse . I did review consent with her as I had in the past. Please see H and P updated in Epic that reflected changes with a new sticker as well. We will proceed to the OR as soon as crew is ready and available. Did discuss risks with the patient as in the past with near term/early term baby, she will need to follow clinically and closely after delivery, and issues with breathing, weight gain, jaundice, and other issues may occur. She understands and agrees with the above treatment plan. We will proceed to the OR as soon as crew is ready and available. [facility] /[id number]
[2020-10-23] MEDS: Ibuprofen 800 MG Tab PO PRN ×2 (00:49→08:35)
[2020-10-23] MEDS: Acetaminophen/oxyCODONE 325-5 MG Tab PO PRN ×2 (04:27→08:36)
[2020-10-23] MEDS: Simethicone 80 MG Tab.Chew PO SCH (08:34)
[2020-10-23] MEDS: Prenatal Multivitamin with Calcium/Folic Acid/Iron Tab PO SCH (08:35)
[2020-10-23 08:41] VITALS: BP 115/54; PULSE 74
--- NOTE | 2020-10-23 09:36 | DISCH ---
ADMIT DIAGNOSES: 1. Intrauterine at 37 weeks by 9-1/7 week ultrasound. 2. Contractions with cervical change upon admission. 3. History of classical section. 4. History of 2 previous sections, requests repeat low transverse section. 5. Group B Streptococcus negative. 6. Impaired glucose tolerance. 7. Anemia of with predelivery hemoglobin being 11.9. 8. G5, P2-1-1-3. DISCHARGE DIAGNOSES: 1. Intrauterine at 37 weeks by 9-1/7 week ultrasound - delivered. 2. Contractions with cervical change upon admission. 3. History of classical section. 4. History of 2 previous sections, requests repeat low transverse section. 5. Group B Streptococcus negative. 6. Impaired glucose tolerance. 7. Anemia of with predelivery hemoglobin being 11.9. 8. G5, P2-1-1-3. 9. Nuchal cord x1, reduced bluntly at delivery. 10.Difficulty delivering vertex, requiring Kiwi vacuum assistance. 11.Minimal rectus muscle layer/subfascial layer. Please see OP report for further details. 12.Anemia related to blood loss with hemoglobin dropping down to 10.4 on postop day #1. HISTORY OF PRESENT ILLNESS: Please see H and P. PROCEDURE PERFORMED: Nonstress test followed by repeat low transverse section per Dr. Wills. SUMMARY OF HOSPITAL COURSE: The patient was admitted on the above date with above diagnosis as she was having contractions with cervical change and history of classical as well as 2 previous C-sections, request repeat low transverse . She underwent a repeat low transverse with an EBL of 500 mL under spinal anesthesia, yielding a male, scores of 9 and 9, weighing 7 pounds 12 ounces (3510 g). Of note, subfascial tissues were essentially non-existent, very minimal with minimal rectus muscle layer noted and discussed with patient as well as discussed if she becomes again needing to be in a higher level of care where an OB and surgeon are available. On postop day #1, please see progress notes. Hemoglobin dropped down to 10.4 compared to predelivery hemoglobin of 11.9. Notes done in conjunction with Karla Lentz, MS-IV, PGY-2, seen and agreed. DISCHARGE EVALUATION: General: The patient was tolerating p.o., was ambulating, urinating, passing flatus, and requesting discharge. Vital Signs: Last set of vitals, temperature 98.7, heart rate 65, blood pressure 104/56, and respiratory rate of 16. Lungs: Clear to auscultation bilaterally. Heart: S1, S2. Regular rate and rhythm. Abdomen: Firm, uterus -2 below umbilicus. Dressings removed and Steri-Strips applied on skin incision, which was dry and intact. No active drainage noted. Extremities: No peripheral edema. No calf pain. CONDITION ON DISCHARGE COMPARED TO CONDITION ON ADMISSION: Improved. DISCHARGE INSTRUCTIONS: 1. Diet as tolerated. 2. Activity: No lifting more than 20 pounds. No sit-ups or straining. Pelvic rest for the next 6 weeks with immediate return to fertility discussed. 3. Reasons to return or go to the emergency room discussed with the patient in detail including but not limited to temperature greater than 100.4; foul- smelling discharge; red, hot, or tender breasts; or increasing pain, drainage, or redness around the incision. DISCHARGE MEDICATIONS: Wyti-qxv-eijjkvj Tylenol or ibuprofen for pain; iron sulfate 325 b.i.d. x6 weeks, which she has at home; and Percocet 5/325 1 to 2 q.6 hours p.r.n., discussed use of medication, adverse and unwanted effects as well as precautions driving, #20, no refills given. FOLLOWUP: In 2 weeks for incision check. Did discuss with patient in the interim reasons to return or go to emergency room in regard to her baby and importance of followup and ramifications of not doing so. An appointment will be set up for baby on 10/26/2020. Please see discharge paperwork for further details. [facility] /[id number]
== END 2020-10-23 12:37 | disposition home or self-care (01) | DRG 788 ==
LOC: DL.OB 20:29 → EDSTATUS 10-22 12:00
PROVIDERS: ADMIT Family Medicine; ATTEND Family Medicine
PROC: 10D00Z1 Extraction of Products of Conception, Low, Open Approach (ICD-10-PCS; principal; 2020-10-21)
DX: O34.211 Maternal care for low transverse scar from previous cesarean delivery (principal); Z37.0 Single live birth; O99.814 Abnormal glucose complicating childbirth; O69.81X0 Labor and delivery complicated by cord around neck, without compression, not applicable or unspecified; O99.02 Anemia complicating childbirth; D50.0 Iron deficiency anemia secondary to blood loss (chronic); Z20.822 Contact with and (suspected) exposure to COVID-19; Z3A.37 37 weeks gestation of pregnancy
CPT/HCPCS: 01961; 36415; 59025; 80305-QW; 85027; 86850; 86900; 86901; A9270-GY; J0690; J1885; J2270; J2590; J2704; J3490; J7120; U0002

== ENCOUNTER 2023-08-08 22:07 | Emergency (ER) | payer BC, MEDICAID ==
[2023-08-08 22:49] LABS: BASOPHILS PERCENT AUTO 0.2 % (0.0-1.0); HEMATOCRIT 39.8 % (37.0-47.0); HEMOGLOBIN 13.1 g/dL (12.0-16.0); LYMPHOCYTES PERCENT AUTO 15.3 % (20.5-50.1); MEAN CORPUSCULAR HEMOGLOBIN 28.3 pg (27.0-34.0); MEAN CORPUSCULAR HGB CONC 32.9 g/dL (33.0-35.0); MONOCYTES PERCENT AUTO 9.4 % (2-8); NEUTROPHILS PERCENT AUTO 72.1 % (42.2-75.2); PLATELET COUNT,PLT 253 10^3/uL (150-450); RED BLOOD CELL COUNT 4.63 10^6/uL (4.2-5.4); WHITE BLOOD CELL COUNT,WBC 12.9 10^3/uL (5.0-10.0)
[2023-08-08 22:55] LABS: APPEARANCE,URINE CLEAR (CLEAR); BILIRUBIN,URINE NEGATIVE (NEGATIVE); COLOR,URINE YELLOW (YELLOW); GLUCOSE,URINE NEGATIVE (NEGATIVE); KETONES,URINE NEGATIVE (NEGATIVE); LEUKOCYTE ESTERASE,URINE NEGATIVE (NEGATIVE); NITRITE,URINE NEGATIVE (NEGATIVE); OCCULT BLOOD,URINE NEGATIVE (NEGATIVE); PH,URINE 7.5 (5.0-9.0); PROTEIN,URINE NEGATIVE (NEGATIVE); UROBILINOGEN,URINE 0.2 mg/dL (0.2-1.0)
[2023-08-08] MEDS: Famotidine 20 MG/2 ML SDV IVPUSH ONE (23:03)
[2023-08-08] MEDS: GI Cocktail Oral Solution 30 ML PO ONE (23:04)
[2023-08-08 23:10] LABS: A/G RATIO 0.9; ALANINE AMINOTRANSFERASE,ALT 36 U/L (14-59); ALBUMIN 3.6 g/dL (3.4-5.0); ALKALINE PHOSPHATASE 112 U/L (46-116); ANION GAP 12.8 mEq/L (7-13); ASPARTATE AMNIOTRANSFERASE,AST 13 U/L (15-37); BILIRUBIN TOTAL 0.4 mg/dL (0.2-1.0); BLOOD UREA NITROGEN,BUN 11 mg/dL (7-18); BUN/CREATININE RATIO 15.7 (No establ ref range); CARBON DIOXIDE,CO2 26 mmol/L (21-32); CHLORIDE,CL 103 mmol/L (98-107); ESTIMATED GFR 122 mL/min (>=60); ETHANOL BLOOD MEDICAL < 3 mg/dL (0); GLUCOSE RANDOM 105 mg/dL (70-99); LIPASE 18 U/L (16-77); MAGNESIUM 1.7 mg/dL (1.8-2.4); POTASSIUM,K 3.8 mmol/L (3.5-5.1); PROTEIN TOTAL,TP 7.7 g/dL (6.4-8.2); SODIUM,NA 138 mmol/L (136-145)
[2023-08-08 23:14] VITALS: BP 111/57; PULSE 86
[2023-08-08 23:27] LABS: CORONAVIRUS COVID-19 NAA NEGATIVE (NEGATIVE); INFLUENZA A NAA NEGATIVE (NEGATIVE); INFLUENZA B NAA NEGATIVE (NEGATIVE); RESPIRATORY SYNCYTIAL VIR NAA NEGATIVE (NEGATIVE)
[2023-08-08] MEDS: methylPREDNISolone Sodium Succinate 125 MG/2 ML SDV IVPUSH ONE (23:54)
[2023-08-08] MEDS: Magnesium Sulfate/Water 2 GM in Premix Bag 1 BAG IV ONE (23:56)
[2023-08-09] MEDS: Albuterol/Ipratropium 3.0-0.5 MG/3 ML Neb Soln NEB ONE (00:02)
[2023-08-09] MEDS: Ondansetron 4 MG/2 ML SDV IVPUSH ONE (00:06)
[2023-08-09] MEDS: Ketorolac 30 MG/ML SDV IVPUSH ONE (00:42)
[2023-08-09] MEDS: cefTRIAXone 1 GM Vial IVPUSH ONE (00:45)
[2023-08-09] MEDS: Lidocaine 1% 5 ML VIAL ONE (00:48)
== END 2023-08-09 00:06 | disposition home or self-care (01) ==
LOC: DL.ED 22:07
DX: K21.9 Gastro-esophageal reflux disease without esophagitis (principal); J06.9 Acute upper respiratory infection, unspecified; Z79.899 Other long term (current) drug therapy
CPT/HCPCS: 0241U; 36415; 71045; 80053; 80307; 81003; 83690; 83735; 84484; 85025; 85379; 93005; 96374; 96375; 99285; A9270; J0696; J1885; J2405; J2930; J3475; J3490; J7620-GY